=== PATIENT | female | born 2000 | race Caucasian/White ===

== ENCOUNTER 2019-07-16 17:24 | Emergency (ER) | payer OTHER ==
[~2019-07-16] VITALS: Ht 167.6 cm; Wt 52.3 kg
[2019-07-16 17:54] VITALS: BP 138/87; TEMP 98.6
[2019-07-16 18:29] LABS: COLLECTION METHOD CLEAN CATCH
[2019-07-16 18:42] LABS: PH 6 (5-8); SQUAMOUS EPITHELIAL 0-2 /hpf; URINE APPEARANCE Clear; URINE BACTERIA None Seen /hpf; URINE BILIRUBIN Negative (NEGATIVE); URINE BLOOD 3+ (NEGATIVE); URINE COLOR Straw; URINE GLUCOSE Negative (NEGATIVE); URINE KETONE Negative (NEGATIVE); URINE LEUKOCYTE ESTERASE Negative (NEGATIVE); URINE NITRATE Negative (NEGATIVE); URINE PROTEIN(semi-quant) Negative (NEGATIVE); URINE RBC >50 /hpf; URINE UROBILINOGEN Negative (NEGATIVE)
[2019-07-16 19:45] VITALS: PULSE 71
== END 2019-07-16 19:45 | disposition home or self-care (01) ==
LOC: COL.ER 17:24
PROVIDERS: Nurse Practitioner
DX: N93.9 Abnormal uterine and vaginal bleeding, unspecified (principal); Z88.0 Allergy status to penicillin; Z96.22 Myringotomy tube(s) status

== ENCOUNTER 2020-05-18 18:41 | Emergency (ER) | payer OTHER ==
[~2020-05-18] VITALS: Ht 167.6 cm; Wt 56.8 kg
[2020-05-18 18:45] VITALS: BP 141/93; TEMP 99
[2020-05-18] MEDS ORDERED: SEPTRA DS 8001 TAB PO (19:03)
[2020-05-18 19:14] VITALS: PULSE 91
== END 2020-05-18 19:15 | disposition home or self-care (01) ==
LOC: COL.ER 18:41
DX: L03.211 Cellulitis of face (principal); Z88.0 Allergy status to penicillin; Z88.1 Allergy status to other antibiotic agents